=== PATIENT | male | born 1950 | race Caucasian/White ===

== ENCOUNTER 2017-06-19 09:51 | Observation (INO) | payer OTHER, MEDICARE ==
[2017-06-19] MEDS ORDERED: Aspirin 81 MG Tab.Chew PO ONE (09:59)
[2017-06-19] MEDS ORDERED: Nitroglycerin 0.4 MG Tab.SL SL ONE ×2 (10:14→10:30)
--- NOTE | 2017-06-19 12:43 | EDM.PDOC ---
[id number] 4d CHEST PAIN Time Seen by Provider: 06/19/17 10:15 Source of Information: Reports: Patient, Family History Limitations: Reports: No Limitations - History of Present Illness INITIAL COMMENTS - FREE TEXT/NARRATIVE: pt developed left sided chest pain and pain in the left shoulder this and during the art handler hours. He has taken tums all nite and did not get relief. On Sunday he did overeat and he thought his gallbadder was the problem/ . Onset: Today Duration: Hour(s): Location: Reports: Chest Quality: Reports: Pressure, Other ( pain at the level of a 5. ) Improves with: Reports: Cold Therapy Associated Symptoms: Reports: Chest Pain, Other (pt was nauseated. ) CHEST Pain Score (Numeric/FACES): 0 - Related Data Allergies Allergy/AdvReac Type Severity Reaction Status Date / Time No Known Allergies Allergy Verified 06/19/17 09:59 Home Meds: Home Meds Aspirin [Ecotrin] 325 mg PO DAILY 06/19/17 [History] HCTZ/Triamterene [Dyazide 25-37.5 MG] 25 - 37.5 mg PO DAILY 06/19/17 [History] Levothyroxine 175 mcg PO DAILY 06/19/17 [History] Metoprolol Succinate 25 mg PO BEDTIME 06/19/17 [History] atorvaSTATin [Lipitor] 10 mg PO BEDTIME 06/19/17 [History] Pantoprazole [ProTONIX] 40 mg PO ACBREAKFAST #30 tab.cr 06/20/17 [Rx] Past Medical History HEENT History: Reports: Impaired Vision Cardiovascular History: Reports: Bypass, High Cholesterol, Hypertension, [place], Stents Endocrine/Metabolic History: Reports: Hypothyroidism - Infectious Disease History Infectious Disease History: Reports: Chicken Pox, Measles - Past Surgical History GI Surgical History: Reports: Colonoscopy Social & Family History - Tobacco Use Smoking Status *Q: Never Smoker - Caffeine Use Caffeine Use: Reports: Coffee - Recreational Drug Use Recreational Drug Use: No ED ROS GENERAL - Review of Systems Review Of Systems: See Below Constitutional: Reports: No Symptoms HEENT: Reports: No Symptoms Respiratory: Reports: No Symptoms Cardiovascular: Reports: Chest Pain, Other (pt had a 4 vessel bypass in 2009. He has not been having chest pain with activity. ) GI/Abdominal: Reports: Nausea : Reports: No Symptoms Musculoskeletal: Reports: No Symptoms Skin: Reports: No Symptoms Neurological: Reports: No Symptoms ED EXAM, GENERAL - Physical Exam Exam: See Below Free Text/Narrative:: pt devoped acute chest pain during the nite. He felt nauseated. He took alot of tums with no results. He continued to have the left sided chest pain. i Exam Limited By: No Limitations General Appearance: Alert, Moderate Distress Ears: Normal TMs Nose: Normal Inspection Throat/Mouth: Normal Inspection Head: Atraumatic Neck: Normal Inspection Respiratory/Chest: No Respiratory Distress Cardiovascular: Regular Rate, Rhythm GI/Abdominal: Soft, Tender, Other ( very mild tenderness without guarding in the epigastric area. ) (Male) Exam: Normal Inspection Rectal (Males) Exam: Deferred Back Exam: Normal Inspection Extremities: Normal Inspection Neurological: Alert, Oriented, Normal Cognition Psychiatric: Normal Affect Course - Vital Signs Last Recorded V/S: Last Vital Signs Temp 36.9 C 06/20/17 08:50 Pulse 56 L 06/20/17 10:45 Resp 16 06/20/17 10:45 BP 130/79 06/20/17 10:45 Pulse Ox 96 06/20/17 10:45 - Orders/Labs/Meds Labs: Laboratory Tests 06/19/17 06/19/17 06/19/17 Range/Units 10:06 10:06 10:06 WBC 13.6 H (4.5-11.0) K/uL RBC 5.46 (4.30-5.90) M/uL Hgb 16.5 H (12.0-15.0) g/dL Hct 45.7 (40.0-54.0) % MCV 84 (80-98) fL MCH 30 (27-31) pg MCHC 36 (32-36) % Plt Count 229 (150-400) K/uL Neut % (Auto) 83 H (36-66) % Lymph % (Auto) 8 L (24-44) % Dolores % (Auto) 9 H (2-6) % Eos % (Auto) 0 L (2-4) % Baso % (Auto) 0 (0-1) % Sodium 138 L (140-148) mmol/L Potassium 3.7 (3.6-5.2) mmol/L Chloride 104 (100-108) mmol/L Carbon Dioxide 25 (21-32) mmol/L Anion Gap 12.7 (5.0-14.0) mmol/L BUN 13 (7-18) mg/dL Creatinine 0.9 (0.8-1.3) mg/dL Est Cr Clr Drug Dosing 83.67 mL/min Estimated GFR (MDRD) > 60 (>60) Glucose 103 (74-106) mg/dL Calcium 9.6 (8.5-10.1) mg/dL Total Bilirubin 1.2 H (0.2-1.0) mg/dL AST 13 L (15-37) U/L ALT 20 (12-78) U/L Alkaline Phosphatase 79 (46-116) U/L Creatine Kinase 40 (39-308) U/L Troponin I < 0.017 (0.000-0.056) ng/mL Total Protein 7.5 (6.4-8.2) g/dL Albumin 3.6 (3.4-5.0) g/dL Globulin 3.9 H (2.3-3.5) g/dL Albumin/Globulin Ratio 0.9 L (1.2-2.2) Lipase (73-393) U/L Urine Color Urine Appearance Urine pH (4.5-8.0) Ur Specific [place] (1.008-1.030) Urine Protein (NEGATIVE) mg/dL Urine Glucose (UA) (NEGATIVE) mg/dL Urine Ketones (NEGATIVE) mg/dL Urine Occult Blood (NEGATIVE) Urine Nitrite (NEGAITVE) Urine Bilirubin (NEGATIVE) Urine Urobilinogen (NORMAL) mg/dL Ur Leukocyte Esterase (NEGATIVE) Urine RBC (0-5) Urine WBC (0-5) Ur Epithelial Cells Amorphous Sediment Urine Bacteria Urine Mucus 06/19/17 06/19/17 Range/Units 10:09 12:08 WBC (4.5-11.0) K/uL RBC (4.30-5.90) M/uL Hgb (12.0-15.0) g/dL Hct (40.0-54.0) % MCV (80-98) fL MCH (27-31) pg MCHC (32-36) % Plt Count (150-400) K/uL Neut % (Auto) (36-66) % Lymph % (Auto) (24-44) % [place] % (Auto) (2-6) % Eos % (Auto) (2-4) % Baso % (Auto) (0-1) % Sodium (140-148) mmol/L Potassium (3.6-5.2) mmol/L Chloride (100-108) mmol/L Carbon Dioxide (21-32) mmol/L Anion Gap (5.0-14.0) mmol/L BUN (7-18) mg/dL Creatinine (0.8-1.3) mg/dL Est Cr Clr Drug Dosing mL/min Estimated GFR (MDRD) (>60) Glucose (74-106) mg/dL Calcium (8.5-10.1) mg/dL Total Bilirubin (0.2-1.0) mg/dL AST (15-37) U/L ALT (12-78) U/L Alkaline Phosphatase (46-116) U/L Creatine Kinase (39-308) U/L Troponin I (0.000-0.056) ng/mL Total Protein (6.4-8.2) g/dL Albumin (3.4-5.0) g/dL Globulin (2.3-3.5) g/dL Albumin/Globulin Ratio (1.2-2.2) Lipase 216 (73-393) U/L Urine Color Yellow Urine Appearance Clear Urine pH 8.0 (4.5-8.0) Ur Specific [place] 1.015 (1.008-1.030) Urine Protein Negative (NEGATIVE) mg/dL Urine Glucose (UA) Normal (NEGATIVE) mg/dL Urine Ketones Negative (NEGATIVE) mg/dL Urine Occult Blood Negative (NEGATIVE) Urine Nitrite Negative (NEGAITVE) Urine Bilirubin Negative (NEGATIVE) Urine Urobilinogen Normal (NORMAL) mg/dL Ur Leukocyte Esterase Negative (NEGATIVE) Urine RBC Not seen (0-5) Urine WBC 0-5 (0-5) Ur Epithelial Cells Few Amorphous Sediment Not seen Urine Bacteria Not seen Urine Mucus Few Meds: Medications Discontinued Medications Generic Name Dose Route Start Last Admin Trade Name Freq PRN Reason Stop Dose Admin Acetaminophen 650 mg 06/19/17 15:38 06/19/17 21:24 Tylenol PO 650 mg Q4H PRN Administration Pain (Mild 1-3)/fever Al Hydroxide/Mg Hydroxide 30 ml 06/19/17 15:38 Mag-Al Plus PO Q4H PRN Indigestion Aspirin 324 mg 06/19/17 09:59 06/19/17 10:20 Aspirin PO 06/19/17 10:00 Not Given ONETIME ONE Aspirin 325 mg 06/20/17 09:00 06/20/17 10:49 Ecotrin PO 325 mg DAILY CHARLETTE Administration Atorvastatin Calcium 10 mg 06/19/17 21:00 06/19/17 21:24 Lipitor PO 10 mg BEDTIME CHARLETTE Administration Al Hydroxide/Mg Hydroxide 15 0 ml 06/19/17 13:40 06/19/17 13:43 ml/ Lidocaine HCl 15 ml PO 06/19/17 13:41 15 ml ONETIME ONE Administration Fentanyl Confirm 06/20/17 07:43 Sublimaze Administered 06/20/17 07:44 Dose 100 mcg .ROUTE .STK-MED ONE Sodium Chloride 85 mls @ 3.5 mls/sec 06/19/17 14:00 06/19/17 13:57 Normal Saline IV 06/19/17 14:30 3.5 mls/sec ASDIRECTED CHARLETTE Administration Sodium Chloride 1,000 mls @ 125 mls/hr 06/19/17 15:38 06/20/17 07:49 Normal Saline IV 125 mls/hr ASDIRECTED CHARLETTE Administration Iopamidol 150 ml 06/19/17 13:48 06/19/17 13:57 Isovue-300 (61%) IV 06/19/17 14:30 150 ml . DIRECTED PRN Administration RADIOLOGY EXAM Metoprolol Succinate 25 mg 06/19/17 21:00 06/19/17 21:24 Toprol Xl PO 25 mg BEDTIME CHARLETTE Administration Midazolam HCl Confirm 06/20/17 07:43 Versed 1 Mg/Ml Administered 06/20/17 07:44 Dose 2 mg .ROUTE .STK-MED ONE Morphine Sulfate 2 mg 06/19/17 15:38 06/20/17 00:04 Morphine IVPUSH 2 mg Q2H PRN Administration Pain (severe 7-10) Nitroglycerin 0.4 mg 06/19/17 10:14 06/19/17 10:19 Nitrostat SL 06/19/17 10:15 0.4 mg ONETIME ONE Administration Nitroglycerin 0.4 mg 06/19/17 10:30 06/19/17 10:32 Nitrostat SL 06/19/17 10:31 0.4 mg ONETIME ONE Administration Levothyroxine 175 0 mcg 06/20/17 07:30 06/20/17 10:48 Mcg (Ptom) PO 175 mcg DAILY@0730 CHARLETTE Administration Ondansetron HCl 4 mg 06/19/17 15:38 Zofran Odt PO Q6H PRN Nausea able to take PO Ondansetron HCl 4 mg 06/19/17 15:38 Zofran IV Q6H PRN Nausea/Vomiting Oxycodone HCl 5 mg 06/19/17 15:38 06/19/17 21:24 Oxycodone PO 5 mg Q4H PRN Administration Pain (moderate 4-6) Pantoprazole Sodium 40 mg 06/20/17 07:30 06/20/17 10:51 Protonix PO 40 mg ACBREAKFAST CHARLETTE Administration Pantoprazole Sodium 40 mg 06/19/17 16:30 06/19/17 16:29 Protonix Iv IVPUSH 06/19/17 16:31 40 mg ONETIME ONE Administration Hctz/Triamterene 25/ 1 each 06/20/17 09:00 06/20/17 10:47 37.5mg (Ptom) PO 1 each DAILY CHARLETTE Administration Propofol Confirm 06/20/17 07:43 Diprivan 20 Ml Administered 06/20/17 07:44 Dose 200 mg .ROUTE .STK-MED ONE Sodium Chloride 10 ml 06/19/17 13:48 06/19/17 13:56 Saline Flush FLUSH 06/19/17 14:30 10 ml ONETIME PRN Administration per radiology protocol - Re-Assessments/Exams Free Text/Narrative Re-Assessment/Exam: 06/19/17 12:52 cardiac enzymes were normal. He had relief with 2 nitros. He had taken asa at home. His ekg did not show acute findings. His GB US was neg. Departure - Departure Time of Disposition: 12:53 Disposition: Admitted As Inpatient 65 Reason for Transfer *Q: Primary PCI Indicated Condition: Fair Clinical Impression: Angina at rest CAD (coronary artery disease) Qualifiers: Coronary Disease-Associated Artery/Lesion type: [place] artery [place] vs. transplanted heart: [place] heart Associated angina: without angina Qualified Code(s): I25.10 - Atherosclerotic heart disease of [place] coronary artery without angina pectoris
--- NOTE | 2017-06-19 13:12 | CR ---
Sternotomy. No focal consolidation. Tortuous aorta. Pulmonary vasculature within normal limits.
--- NOTE | 2017-06-19 13:22 | US ---
Ultrasound abdomen. Findings: Liver is limited. There may be some fatty infiltration. Gallbladder unremarkable. No wall thickening. Negative sonographic Dolan sign. Common bile duct 4 mm. Pancreas not well-visualized. 6 mm nonobstructing stone right kidney. IVC is patent. No ascites fluid. Impression: 1. Gallbladder unremarkable. 2. Nonobstructing stone right kidney.
[2017-06-19] MEDS ORDERED: Alum Hydrox/Mag Hydrox/Simeth 15 ML, Lidocaine 2% 15 ML PO ONE ×2 (13:40)
[2017-06-19] MEDS ORDERED: Sodium Chloride 0.9% 10 ML Syringe FLUSH PRN (13:48)
[2017-06-19] MEDS ORDERED: Iopamidol 612 MG/ML 150 ML Bottle IV PRN (13:48)
--- NOTE | 2017-06-19 14:23 | CT ---
CT abdomen and pelvis Indication: Epigastric pain. Total DLP 873. Findings: Atelectasis in the lung bases. Fatty infiltration of the liver. Gallbladder within normal limits. Adrenal glands are within normal limits. There is hyperemia within the second portion of the duodenum mild amount of fat stranding about the second duodenum portion the duodenum. Slight hazine ss about the uncinate process and pancreatic head. 5 mm vague hypoattenuation within the pancreatic head may relate to volume averaging only. Pancreas within normal limits. No hydronephrosis. A few ti ny hypodensities within the kidneys are too small to characterize. Probable right renal cyst near 1 cm axial image #58 with the mid pole should be confirmed with ultrasound. No dilated loops of small bowel. Sigmoid diverticuli. No evidence for acute diverticulitis. Appendix within normal limits. Ter rolf ileum within normal limits. A few small lymph nodes minimal haziness within the mesentery. Ath erosclerotic nonaneurysmal aorta. Degenerative changes of both hips. Impression: 1. Haziness of both the duodenum may indicate acute duodenitis or may be reactive due to acute pancr eatitis. Correlate with enzymes and consider endoscopy follow-up. 2. Vague hypoattenuation within the pancreatic head may be due to volume averaging only and may also be due to inflammation, acute pancreatitis but would recommend CT follow-up of the abdomen and pelv is in pancreatic protocol in 6 months. 3. There are few minimal lymph nodes in the mesentery with minimal haziness. This is nonspecific and could be inflammatory in nature. This could be evaluated again in [address] 4. Would confirm a right renal cyst with ultrasound. Nonemergent.
--- NOTE | 2017-06-19 14:52 | PCM.HP ---
H&P History of Present Illness - General Date of Service: 06/19/17 Admit Problem/Dx: Admission Diagnosis/Problem Admission Diagnosis/Problem Epigastric pain Source of Information: Patient, Family, Provider History Limitations: Reports: No Limitations - History of Present Illness Initial Comments - Free Text/Narative: Kuldip presents to the emergency room today with epigastric abdominal pain. He reports onset of pain yesterday about 4 PM and the pain has been essentially constant since that time. He describes this as a dull achy pain that radiates up into the lower part of his chest slightly. The pain does not get worse with exertion. No obvious positional component. He has been taking Tums at home but this has not helped his pain at all. He's had some nausea but has not had any vomiting. He is not aware of any fevers. His appetite has been decreased from baseline over the past 24. No change in his bowel or bladder habits from baseline. He is not taking any new medications. No recent travel or sick contacts. He is now pain-free after he received 2 nitroglycerin in the emergency room. Workup in the emergency room was remarkable for mild leukocytosis but otherwise reassuring initially. A CT scan of his abdomen and pelvis revealed probable inflammation of the duodenum and possibly some mild pancreatitis. He will be admitted for further workup and management. CHEST Pain Score (Numeric/FACES): 0 - Related Data Allergies/Adverse Reactions: Allergies Allergy/AdvReac Type Severity Reaction Status Date / Time No Known Allergies Allergy Verified 06/19/17 09:59 Home Medications: Home Meds Aspirin [Ecotrin] 325 mg PO DAILY 06/19/17 [History] HCTZ/Triamterene [Dyazide 25-37.5 MG] 25 - 37.5 mg PO DAILY 06/19/17 [History] Levothyroxine 175 mcg PO DAILY 06/19/17 [History] Metoprolol Succinate 25 mg PO BEDTIME 06/19/17 [History] atorvaSTATin [Lipitor] 10 mg PO BEDTIME 06/19/17 [History] Past Medical History HEENT History: Reports: Impaired Vision Cardiovascular History: Reports: Bypass, High Cholesterol, Hypertension, [place], Stents Endocrine/Metabolic History: Reports: Hypothyroidism - Infectious Disease History Infectious Disease History: Reports: Chicken Pox, Measles - Past Surgical History GI Surgical History: Reports: Colonoscopy Social & Family History - Family History Cardiac: Denies: CAD - Tobacco Use Smoking Status *Q: Never Smoker - Caffeine Use Caffeine Use: Reports: Coffee - Alcohol Use Alcohol Use History: Yes Days Per Week of Alcohol Use: 1 Days Per Week of Alcohol Use Comment: occasional beer or two Alcohol Use in Last Twelve Months: Yes Alcohol Use Frequency: Monthly - Recreational Drug Use Recreational Drug Use: No H&P Review of Systems - Review of Systems: Review Of Systems: See Below Free Text/Narrative: A complete 12 point review of systems was obtained. Pertinent positives and negatives are noted in the history of present illness. All other systems were reviewed and were negative except as noted. Exam - Exam Exam: See Below - Vital Signs Vital Signs: Last Vital Signs Temp 37.2 C 06/19/17 10:11 Pulse 60 06/19/17 10:25 Resp 16 06/19/17 10:33 BP 148/94 H 06/19/17 10:33 Pulse Ox 98 06/19/17 10:33 Weight: 99.79 kg - Exam Quality Assessment: No: Supplemental Oxygen General: Alert, Oriented, Cooperative. No: Mild Distress HEENT: Conjunctiva Clear, Mucosa Moist & [place]. No: Scleral Icterus Neck: Supple, Trachea Midline. No: Lymphadenopathy Lungs: Clear to Auscultation, Normal Respiratory Effort Cardiovascular: Regular Rate, Regular Rhythm. No: Systolic Murmur GI/Abdominal Exam: Normal Bowel Sounds, Soft, No Distention, Tender (mild to moderate epigastric tenderness). No: Guarding, Rebound Back Exam: Normal Inspection, Full Range of Motion Extremities: Normal Inspection, Normal Range of Motion Peripheral Pulses: 2+: Dorsalis Pedis (L), Dorsalis Pedis (R) Skin: Warm, Dry Neuro Extensive - Mental Status: Alert, Oriented x3, Nl Response to Commands Neuro Extensive - Motor, Sensory, Reflexes: CN II-XII Intact. No: Dysarthria, Abnormal Motor, Tremor Psychiatric: Alert, Normal Affect - Patient Data Lab Results Last 24 hrs: Laboratory Results - last 24 hr 06/19/17 06/19/17 06/19/17 Range/Units 10:06 10:06 10:06 WBC 13.6 H (4.5-11.0) K/uL RBC 5.46 (4.30-5.90) M/uL Hgb 16.5 H (12.0-15.0) g/dL Hct 45.7 (40.0-54.0) % MCV 84 (80-98) fL MCH 30 (27-31) pg MCHC 36 (32-36) % Plt Count 229 (150-400) K/uL Neut % (Auto) 83 H (36-66) % Lymph % (Auto) 8 L (24-44) % [place] % (Auto) 9 H (2-6) % Eos % (Auto) 0 L (2-4) % Baso % (Auto) 0 (0-1) % Sodium 138 L (140-148) mmol/L Potassium 3.7 (3.6-5.2) mmol/L Chloride 104 (100-108) mmol/L Carbon Dioxide 25 (21-32) mmol/L Anion Gap 12.7 (5.0-14.0) mmol/L BUN 13 (7-18) mg/dL Creatinine 0.9 (0.8-1.3) mg/dL Est Cr Clr Drug Dosing 83.67 mL/min Estimated GFR (MDRD) > 60 (>60) Glucose 103 (74-106) mg/dL Calcium 9.6 (8.5-10.1) mg/dL Total Bilirubin 1.2 H (0.2-1.0) mg/dL AST 13 L (15-37) U/L ALT 20 (12-78) U/L Alkaline Phosphatase 79 (46-116) U/L Creatine Kinase 40 (39-308) U/L Troponin I < 0.017 (0.000-0.056) ng/mL Total Protein 7.5 (6.4-8.2) g/dL Albumin 3.6 (3.4-5.0) g/dL Globulin 3.9 H (2.3-3.5) g/dL Albumin/Globulin Ratio 0.9 L (1.2-2.2) Lipase (73-393) U/L Urine Color Urine Appearance Urine pH (4.5-8.0) Ur Specific [place] (1.008-1.030) Urine Protein (NEGATIVE) mg/dL Urine Glucose (UA) (NEGATIVE) mg/dL Urine Ketones (NEGATIVE) mg/dL Urine Occult Blood (NEGATIVE) Urine Nitrite (NEGAITVE) Urine Bilirubin (NEGATIVE) Urine Urobilinogen (NORMAL) mg/dL Ur Leukocyte Esterase (NEGATIVE) Urine RBC (0-5) Urine WBC (0-5) Ur Epithelial Cells Amorphous Sediment Urine Bacteria Urine Mucus 06/19/17 06/19/17 Range/Units 10:09 12:08 WBC (4.5-11.0) K/uL RBC (4.30-5.90) M/uL Hgb (12.0-15.0) g/dL Hct (40.0-54.0) % MCV (80-98) fL MCH (27-31) pg MCHC (32-36) % Plt Count (150-400) K/uL Neut % (Auto) (36-66) % Lymph % (Auto) (24-44) % [place] % (Auto) (2-6) % Eos % (Auto) (2-4) % Baso % (Auto) (0-1) % Sodium (140-148) mmol/L Potassium (3.6-5.2) mmol/L Chloride (100-108) mmol/L Carbon Dioxide (21-32) mmol/L Anion Gap (5.0-14.0) mmol/L BUN (7-18) mg/dL Creatinine (0.8-1.3) mg/dL Est Cr Clr Drug Dosing mL/min Estimated GFR (MDRD) (>60) Glucose (74-106) mg/dL Calcium (8.5-10.1) mg/dL Total Bilirubin (0.2-1.0) mg/dL AST (15-37) U/L ALT (12-78) U/L Alkaline Phosphatase (46-116) U/L Creatine Kinase (39-308) U/L Troponin I (0.000-0.056) ng/mL Total Protein (6.4-8.2) g/dL Albumin (3.4-5.0) g/dL Globulin (2.3-3.5) g/dL Albumin/Globulin Ratio (1.2-2.2) Lipase 216 (73-393) U/L Urine Color Yellow Urine Appearance Clear Urine pH 8.0 (4.5-8.0) Ur Specific [place] 1.015 (1.008-1.030) Urine Protein Negative (NEGATIVE) mg/dL Urine Glucose (UA) Normal (NEGATIVE) mg/dL Urine Ketones Negative (NEGATIVE) mg/dL Urine Occult Blood Negative (NEGATIVE) Urine Nitrite Negative (NEGAITVE) Urine Bilirubin Negative (NEGATIVE) Urine Urobilinogen Normal (NORMAL) mg/dL Ur Leukocyte Esterase Negative (NEGATIVE) Urine RBC Not seen (0-5) Urine WBC 0-5 (0-5) Ur Epithelial Cells Few Amorphous Sediment Not seen Urine Bacteria Not seen Urine Mucus Few Result Diagrams: 06/19/17 10:06 06/19/17 10:06 Imaging Impressions Last 24 hrs: chest x-ray - images personally reviewed - clear with no mass, infiltrate, CHF or effusion Gallbladder ultrasound - no evidence for distention, wall thickening or pericholecystic fluid CT scan of the abdomen and pelvis with IV contrast - images personally reviewed and radiologist interpretation noted - there appears to be thickening of the duodenum as well as possible haziness around the head of the pancreas. No obvious masses noted. No free air. The radiologist noted some mesenteric lymph node enlargement in the area of the inflammation and this may be reactive but he did recommend follow-up CT in 6 months. 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 *Q Meaningful Use (ADM) - VTE *Q VTE Criteria *Q: - VTE Risk Assess *Q Each Risk Factor Represents 1 Point: Obesity (BMI greater than 30) Total Score 1 Point Risk Factors: 1 Each Risk Factor Represents 2 Points: Age 60 - 74 Years Total Score 2 Point Risk Factors: 2 Each Risk Factor Represents 3 Points: None Total Score 3 Point Risk Factors: 0 Each Risk Factor Represents 5 Points: None Total Score 5 Point Risk Factors: 0 Venous Thromboembolism Risk Factor Score *Q: 3 - Stroke *Q Stroke Criteria *Q: - AMI *Q AMI Criteria *Q: - Problem List (1) Epigastric abdominal pain SNOMED Code(s): 27623948 ICD Code: R10.13 - EPIGASTRIC PAIN Status: Acute Current Visit: Yes (2) CAD (coronary artery disease) SNOMED Code(s): 72441318 ICD Code: I25.10 - ATHSCL HEART DISEASE OF [place] CORONARY ARTERY W/O ANG PCTRS Status: Chronic Current Visit: Yes Qualifiers: Coronary Disease-Associated Artery/Lesion type: [place] artery [place] vs. transplanted heart: [place] heart Associated angina: without angina Qualified Code(s): I25.10 - Atherosclerotic heart disease of [place] coronary artery without angina pectoris Problem List Initiated/Reviewed/Updated: Yes Orders Last 24hrs: Active Orders 24 hr Category Date Time Status Patient Status Manage Transfer [TRANSFER] Routine ADT 06/19/17 14:39 Ordered EKG Documentation Completion [RC] ASDIRECTED Care 06/19/17 09:58 Active Resuscitation Status Routine Resus Stat 06/19/17 14:41 Ordered EKG 12 Lead [EK] Routine Ther 06/19/17 09:58 Ordered Assessment/Plan Comment:: Assessment and plan - epigastric abdominal pain - very atypical for cardiac pain and cardiac workup normal. CT scan suggested inflammation of the duodenum with ulcer disease high on the list for possibilities. No symptoms of infection at this time. Pain is tolerable at this time and he does have some associated nausea. -Pain and nausea control overnight -IV fluids -PPI -EGD with Dr. Lauren in the morning coronary artery disease - history of with previous bypass surgery. No symptoms with activity and no evidence for acute coronary syndrome. I suspect his coronary artery disease is stable and not playing a role in this admission. -Continue medical management Mesenteric lymphadenopathy - mild and likely reactive but radiology did recommend 6 month follow-up. Maintenance issues - - DVT prophylaxis - mechanical - GI prophylaxis - PPI - Nutrition - clear liquids today, nothing by mouth after midnight - Joyce catheter - not indicated CODE STATUS - full code Admission justification - patient will be referred observation status for symptom management and additional workup Disposition - anticipate discharge to home tomorrow if stable overnight Primary care physician - Husam Harrell M.D.
[2017-06-19] MEDS ORDERED: oxyCODONE 5 MG Tab PO PRN (15:38)
[2017-06-19] MEDS ORDERED: Aluminum Hydroxide/Magnesium Hydroxide/Simethicone Susp 30 ML Cup PO PRN (15:38)
[2017-06-19] MEDS ORDERED: Ondansetron 4 MG Tab.DIS PO PRN (15:38)
[2017-06-19] MEDS ORDERED: Ondansetron 4 MG/2 ML SDV IV PRN (15:38)
[2017-06-19] MEDS ORDERED: Acetaminophen 325 MG Tab PO PRN (15:38)
[2017-06-19] MEDS: Sodium Chloride 0.9% 1,000 ML IV SCH ×2 (16:00→23:48)
[2017-06-19] MEDS ORDERED: Pantoprazole 40 MG Vial IVPUSH ONE (16:30)
[2017-06-19] MEDS: Morphine 2 MG/ML Syringe IVPUSH PRN (16:34)
[2017-06-19] MEDS ORDERED: ATORVASTATIN 20 MG PO SCH (21:00)
[2017-06-19] MEDS ORDERED: Metoprolol Succinate 50 MG Tab.ER (PTOM) PO SCH (21:00)
[2017-06-20] MEDS: Morphine 2 MG/ML Syringe IVPUSH PRN (00:04)
[2017-06-20] MEDS ORDERED: LEVOTHYROXINE 175 MCG PO SCH (07:30)
[2017-06-20] MEDS ORDERED: Pantoprazole 40 MG Tab.CR PO SCH (07:30)
[2017-06-20] MEDS ORDERED: Midazolam 1 MG/ML 2 ML SDV ONE (07:43)
[2017-06-20] MEDS ORDERED: fentaNYL 100 MCG/2 ML SDV ONE (07:43)
[2017-06-20] MEDS ORDERED: Propofol 200 MG/20 ML SDV ONE (07:43)
[2017-06-20] MEDS: Sodium Chloride 0.9% 1,000 ML IV SCH (07:49)
[2017-06-20] MEDS ORDERED: Non-Formulary Medication 1 Each (Levothyroxine [Levothyroxine] 175 MCG) PO SCH (09:00)
[2017-06-20] MEDS ORDERED: ASPIRIN 325 MG PO SCH (09:00)
[2017-06-20] MEDS ORDERED: HCTZ PO SCH (09:00)
[2017-06-20] MEDS ORDERED: TRIAMTERENE PO SCH (09:00)
[2017-06-20] MEDS ORDERED: Hydrochlorothiazide/Triamterene 25-37.5 MG Cap PO SCH (09:00)
[2017-06-20 12:31] VITALS: BP 130/79
--- NOTE | 2017-06-20 12:35 | PCM.DCSUM1 ---
Discharge Summary - Hospital Course Brief History: 67-year-old male with history of coronary artery disease who presented with epigastric pain. He was admitted for further workup and management of possible duodenitis. - Discharge Data Discharge Date: 06/20/17 Discharge Disposition: Home, Self-Care 01 Condition: Good - Discharge Diagnosis/Problem(s) (1) Epigastric abdominal pain SNOMED Code(s): 81560317 ICD Code: R10.13 - EPIGASTRIC PAIN Status: Acute (2) CAD (coronary artery disease) SNOMED Code(s): 64289780 ICD Code: I25.10 - ATHSCL HEART DISEASE OF [place] CORONARY ARTERY W/O ANG PCTRS Status: Chronic Qualifiers: Coronary Disease-Associated Artery/Lesion type: [place] artery [place] vs. transplanted heart: [place] heart Associated angina: without angina Qualified Code(s): I25.10 - Atherosclerotic heart disease of [place] coronary artery without angina pectoris - Patient Summary/Data Operative Procedure(s) Performed: EGD with Dr. Lauren showing mild reflux disease Consults: Consultations 06/19/17 15:38 Consult to Physician [CONS] Routine Consulting Provider: Jaya Lauren Call Completed to Consulting Physician: Yes Reason for Consult: epigastric pain, consider EGD Person Notified: RW Date Notified: 06/19/17 Special Instructions: EGD in am Hospital Course: Kuldip presented to the emergency room with more than 12 hours of epigastric abdominal pain. Workup in the emergency room revealed a mildly elevated white blood cell count but was otherwise reassuring initially. There is no evidence for acute coronary syndrome. A CT scan of the abdomen and pelvis revealed a probable inflammation of the duodenum. He was admitted to the hospital for IV fluids, pain control at additional workup. There were no acute events overnight following admission and his pain had been improving. An EGD performed the morning after admission revealed only some mild esophageal reflux but no evidence for duodenitis or duodenal ulcers. Duodenum appeared entirely normal under endoscopy evaluation. On the morning after admission he is pain-free. We did feed him lunch which he tolerated well with no pain or nausea. The exact cause for his pain is not entirely clear. Other than the mild inflammation of the duodenum seen on the CT scan we did not find an obvious cause. His lipase level was normal and his endoscopy was normal. Bladder and liver appeared to be normal in the hepatic enzymes were normal other than a very mildly elevated total bilirubin. Clinically is doing much better and safe for discharge to home. I don't believe he needs specific follow-up unless his symptoms return or do not continue to get better. Of note he did have some mild lymphadenopathy noted in the upper abdomen on his CT scan. The radiologist recommended a six-month follow-up scan to ensure that this was reactive and resolved at that time. - Patient Instructions Diet: Regular Diet as Tolerated Diet, Other: Soft and bland foods for the next 1-2 weeks Activity: As Tolerated Driving: Do Not Drive (No driving today because you had anesthesia this morning) Showering/Bathing: May Shower Notify Provider of: Fever, Increased Pain, Nausea and/or Vomiting Other/Special Instructions: 1. You were in the hospital for management of epigastric pain that is thought secondary to mild gastritis and possibly a viral gastrointestinal infection. We did not find any evidence for gastric or duodenal ulcers. Your symptoms have improved with conservative management. I do recommend that you take a proton pump inhibitor called pantoprazole daily for the next one month to help heal up the mild gastritis. 2. The CT scan of your abdomen revealed mildly enlarged lymph nodes which are probably reactive to the inflammation/possible infection in the duodenum but the radiologist did recommend a follow-up CT scan in 6 months to ensure that these have shrunk in size or gone away completely. Please talked your regular doctor about setting up this CT scan. 3. Continue your home medications as previously prescribed. 4. Please seek medical attention if you develop fever greater than 101, have persistent nausea or vomiting or if you develop severe pain in your abdomen. - Discharge Plan Prescriptions/Med Rec: Pantoprazole [ProTONIX] 40 mg PO ACBREAKFAST #30 tab.cr Home Medications: Home Meds Aspirin [Ecotrin] 325 mg PO DAILY 06/19/17 [History] HCTZ/Triamterene [Dyazide 25-37.5 MG] 25 - 37.5 mg PO DAILY 06/19/17 [History] Levothyroxine 175 mcg PO DAILY 06/19/17 [History] Metoprolol Succinate 25 mg PO BEDTIME 06/19/17 [History] atorvaSTATin [Lipitor] 10 mg PO BEDTIME 06/19/17 [History] Pantoprazole [ProTONIX] 40 mg PO ACBREAKFAST #30 tab.cr 06/20/17 [Rx] Patient Handouts: Gastritis, Adult, Pantoprazole tablets Referrals: Grecia Washington MD [Primary Care Provider] - (Follow-up if your symptoms do not continue to get better or they get worse) - Discharge Summary/Plan Comment DC Time >30 min.: No (25) - Patient Data Vitals - Most Recent: Last Vital Signs Temp 36.9 C 06/20/17 08:50 Pulse 56 L 06/20/17 10:45 Resp 16 06/20/17 10:45 BP 130/79 06/20/17 10:45 Pulse Ox 96 06/20/17 10:45 Weight - Most Recent: 99.79 kg I&O - Last 24 hours: Intake & Output 06/19/17 06/20/17 06/20/17 22:59 06:59 14:59 Intake Total 940 1526 50 Output Total 400 800 Balance 540 726 50 Lab Results - Last 24 hrs: Laboratory Results - last 24 hr 06/20/17 06/20/17 Range/Units 06:00 06:20 WBC 11.3 H (4.5-11.0) K/uL RBC 5.03 (4.30-5.90) M/uL Hgb 14.9 (12.0-15.0) g/dL Hct 42.7 (40.0-54.0) % MCV 85 (80-98) fL MCH 30 (27-31) pg MCHC 35 (32-36) % Plt Count 190 (150-400) K/uL Sodium 140 (140-148) mmol/L Potassium 3.5 L (3.6-5.2) mmol/L Chloride 105 (100-108) mmol/L Carbon Dioxide 25 (21-32) mmol/L Anion Gap 13.5 (5.0-14.0) mmol/L BUN 9 (7-18) mg/dL Creatinine 0.8 (0.8-1.3) mg/dL Est Cr Clr Drug Dosing 94.13 mL/min Estimated GFR (MDRD) > 60 (>60) Glucose 101 (74-106) mg/dL Calcium 8.6 (8.5-10.1) mg/dL Total Bilirubin 1.4 H (0.2-1.0) mg/dL AST 10 L (15-37) U/L ALT 15 (12-78) U/L Alkaline Phosphatase 66 (46-116) U/L Total Protein 6.6 (6.4-8.2) g/dL Albumin 2.9 L (3.4-5.0) g/dL Globulin 3.7 H (2.3-3.5) g/dL Albumin/Globulin Ratio 0.8 L (1.2-2.2) Med Orders - Current: Current Medications Acetaminophen (Tylenol) 650 mg PO Q4H PRN PRN Reason: Pain (Mild 1-3)/fever Last Admin: 06/19/17 21:24 Dose: 650 mg Al Hydroxide/Mg Hydroxide (Mag-Al Plus) 30 ml PO Q4H PRN PRN Reason: Indigestion Aspirin (Ecotrin) 325 mg PO DAILY [facility] Last Admin: 06/20/17 10:49 Dose: 325 mg Atorvastatin Calcium (Lipitor) 10 mg PO BEDTIME [facility] Last Admin: 06/19/17 21:24 Dose: 10 mg Metoprolol Succinate (Toprol Xl) 25 mg PO BEDTIME [facility] Last Admin: 06/19/17 21:24 Dose: 25 mg Morphine Sulfate (Morphine) 2 mg IVPUSH Q2H PRN PRN Reason: Pain (severe 7-10) Last Admin: 06/20/17 00:04 Dose: 2 mg Levothyroxine 175 (Mcg (Ptom)) 0 mcg PO DAILY@0730 [facility] Last Admin: 06/20/17 10:48 Dose: 175 mcg Ondansetron HCl (Zofran Odt) 4 mg PO Q6H PRN PRN Reason: Nausea able to take PO Ondansetron HCl (Zofran) 4 mg IV Q6H PRN PRN Reason: Nausea/Vomiting Oxycodone HCl (Oxycodone) 5 mg PO Q4H PRN PRN Reason: Pain (moderate 4-6) Last Admin: 06/19/17 21:24 Dose: 5 mg Pantoprazole Sodium (Protonix) 40 mg PO ACBREAKFAST [facility] Last Admin: 06/20/17 10:51 Dose: 40 mg Hctz/Triamterene 25/ (37.5mg (Ptom)) 1 each PO DAILY [facility] Last Admin: 06/20/17 10:47 Dose: 1 each Discontinued Medications Aspirin (Aspirin) 324 mg PO ONETIME ONE Stop: 06/19/17 10:00 Last Admin: 06/19/17 10:20 Dose: Not Given Al Hydroxide/Mg Hydroxide 15 (ml/ Lidocaine HCl 15 ml) 0 ml PO ONETIME ONE Stop: 06/19/17 13:41 Last Admin: 06/19/17 13:43 Dose: 15 ml Fentanyl (Sublimaze) Confirm Administered Dose 100 mcg .ROUTE .STK-MED ONE Stop: 06/20/17 07:44 Sodium Chloride (Normal Saline) 85 mls @ 3.5 mls/sec IV ASDIRECTED [facility] Stop: 06/19/17 14:30 Last Admin: 06/19/17 13:57 Dose: 3.5 mls/sec Sodium Chloride (Normal Saline) 1,000 mls @ 125 mls/hr IV ASDIRECTED [facility] Last Admin: 06/20/17 07:49 Dose: 125 mls/hr Iopamidol (Isovue-300 (61%)) 150 ml IV . DIRECTED PRN PRN Reason: RADIOLOGY EXAM Stop: 06/19/17 14:30 Last Admin: 06/19/17 13:57 Dose: 150 ml Midazolam HCl (Versed 1 Mg/Ml) Confirm Administered Dose 2 mg .ROUTE .STK-MED ONE Stop: 06/20/17 07:44 Nitroglycerin (Nitrostat) 0.4 mg SL ONETIME ONE Stop: 06/19/17 10:15 Last Admin: 06/19/17 10:19 Dose: 0.4 mg Nitroglycerin (Nitrostat) 0.4 mg SL ONETIME ONE Stop: 06/19/17 10:31 Last Admin: 06/19/17 10:32 Dose: 0.4 mg Pantoprazole Sodium (Protonix Iv) 40 mg IVPUSH ONETIME ONE Stop: 06/19/17 16:31 Last Admin: 06/19/17 16:29 Dose: 40 mg Propofol (Diprivan 20 Ml) Confirm Administered Dose 200 mg .ROUTE .STK-MED ONE Stop: 06/20/17 07:44 Sodium Chloride (Saline Flush) 10 ml FLUSH ONETIME PRN PRN Reason: per radiology protocol Stop: 06/19/17 14:30 Last Admin: 06/19/17 13:56 Dose: 10 ml *Q Meaningful Use (DIS) - VTE *Q VTE Criteria *Q: - Stroke *Q Stroke Criteria *Q: - AMI *Q AMI Criteria *Q:
--- NOTE | 2017-06-20 14:10 | OR ---
DATE OF PROCEDURE: 06/19/2017 PROCEDURE: Esophagogastroduodenoscopy. FINDINGS: 1. Mild inflammation in the gastric antrum consistent with mild gastritis. 2. Inflammation at GE junction consistent with reflux disease. 3. Both areas biopsied multiple times. COMPLICATIONS: None. DISTRIBUTOR SALES CONSULTANT: None. PREOPERATIVE DIAGNOSIS: Epigastric/abdominal pain. POSTOPERATIVE DIAGNOSIS: Epigastric/abdominal pain. RISKS: Risks, benefits, alternatives, limitations including, but not limited to infection, bleeding, and perforation were explained to the patient and wished to proceed. PROCEDURE IN DETAIL: The patient was placed in left lateral decubitus position. The scope was introduced and advanced into the duodenum. In the duodenum and its respective bulb, there was no evidence of ulceration or duodenitis. In the distal antrum, there was mild inflammation consistent with gastritis. This was biopsied multiple times using cold biopsy forceps to evaluate for H. pylori. On retroflex, it was not hiatal hernia. The remainder of the stomach was normal. At the GE junction, there was inflammation consistent with reflux disease. This was biopsied x6 in all 4 quadrants. No abnormalities noted at esophagus. The patient tolerated the procedure well. Jaya Lauren MD /[id number]
== END 2017-06-20 13:10 | disposition home or self-care (01) ==
LOC: JP.ED 09:51 → JP.ICU 14:39 → UNDOADMOB 14:39
PROVIDERS: ADMIT Internal Medicine; ATTEND Internal Medicine
PROC: 0DB48ZZ Excision of Esophagogastric Junction, Via Natural or Artificial Opening Endoscopic (ICD-10-PCS; principal; 2017-06-19)
DX: R10.13 Epigastric pain (principal); R07.9 Chest pain, unspecified; Z79.82 Long term (current) use of aspirin; E78.00 Pure hypercholesterolemia, unspecified; I10 Essential (primary) hypertension; E03.9 Hypothyroidism, unspecified; Z95.1 Presence of aortocoronary bypass graft; I25.10 Atherosclerotic heart disease of native coronary artery without angina pectoris; I25.2 Old myocardial infarction; K29.70 Gastritis, unspecified, without bleeding
CPT/HCPCS: 36415; 43239; 71010; 74177; 76705; 80053; 81001; 82550; 83690; 84484; 85025; 85027; 93005; 96361; 96374; 96375; 96376; 99285; A9270; C9113; G0378; J2250; J2270; J2704; J3010; J7030; J7040; J7050; 88305; 88342; 93010; 99219; 99234

== ENCOUNTER 2019-12-13 14:52 | Emergency (ER) | payer MEDICARE, OTHER ==
--- NOTE | 2019-12-13 15:57 | EDM.PDOC ---
ED HPI GENERAL MEDICAL PROBLEM - General Chief Complaint: Neurological Problem Stated Complaint: CONFUSED/ HEART ISSUES Time Seen by Provider: 12/13/19 15:40 Source of Information: Reports: Patient, Family, Old Records, RN History Limitations: Reports: No Limitations - History of Present Illness INITIAL COMMENTS - FREE TEXT/NARRATIVE: 69 yo male was pretty severely stressed today when first he got a vehicle stuck , then when he tried to get that out with his Bobcat he got that stuck as well. He got ready to try to blow them out with his snowblower and decided with his to go inside and rest. Once inside he realized he couldn't remember what he was doing. He had no other sx's such as slurring, difficulty with speech or chest pain. Has a hx of CAD, but not stoke or TIA. Sx's lasted about 30 minutes. His said she could tell that when his memory returned he appeared more relaxed. Onset: Today, Sudden Onset Date: 12/13/19 Duration: Minutes: (30), Resolved Prior to Arrival Location: Reports: Head (amnesia) Quality: Reports: Other (no pain) Severity: Moderate Improves with: Reports: Other (time/relaxing) Worsens with: Reports: Other (? stress) Context: Reports: Other (see HPI) Associated Symptoms: Reports: No Other Symptoms Treatments SHIPYARD HELPER: Reports: Aspirin - Related Data Allergies Allergy/AdvReac Type Severity Reaction Status Date / Time No Known Allergies Allergy Verified 12/13/19 15:29 Home Meds: Home Meds Aspirin [Ecotrin EC] 325 mg PO DAILY 06/19/17 [History] HCTZ/Triamterene [Dyazide 25-37.5 MG] 25 - 37.5 mg PO DAILY 06/19/17 [History] Levothyroxine 175 mcg PO DAILY 06/19/17 [History] Metoprolol Succinate 25 mg PO BEDTIME 06/19/17 [History] atorvaSTATin [Lipitor] 10 mg PO BEDTIME 06/19/17 [History] Past Medical History HEENT History: Reports: Impaired Vision Cardiovascular History: Reports: Bypass, High Cholesterol, Hypertension, [place], Stents Endocrine/Metabolic History: Reports: Hypothyroidism - Infectious Disease History Infectious Disease History: Reports: Chicken Pox, Measles - Past Surgical History GI Surgical History: Reports: Colonoscopy Social & Family History - Tobacco Use Smoking Status *Q: Never Smoker - Caffeine Use Caffeine Use: Reports: Coffee ED ROS GENERAL - Review of Systems Review Of Systems: See Below Constitutional: Reports: No Symptoms HEENT: Reports: No Symptoms Respiratory: Reports: No Symptoms Cardiovascular: Reports: No Symptoms GI/Abdominal: Reports: No Symptoms : Reports: No Symptoms Musculoskeletal: Reports: No Symptoms Skin: Reports: No Symptoms Neurological: Reports: Other (transient amnesia to recent events) Psychiatric: Reports: Anxiety (at the time, not now) ED EXAM, NEURO - Physical Exam Exam: See Below Exam Limited By: No Limitations General Appearance: Alert, WD/WN, No Apparent Distress Eye Exam: Bilateral Eye: EOMI, Normal Inspection, PERRL Ears: Normal External Exam, Normal Canal, Hearing Grossly Normal, Normal TMs Nose: Normal Inspection, No Blood Throat/Mouth: Normal Inspection, Normal Lips, Normal Oropharynx, Normal Voice, No Airway Compromise Head Exam: Atraumatic, Normocephalic Neck: Normal Inspection Respiratory/Chest: No Respiratory Distress, Lungs Clear, Normal Breath Sounds, No Accessory Muscle Use Cardiovascular: Regular Rate, Rhythm, No Edema GI/Abdominal: Normal Bowel Sounds, Soft, Non-Tender Neurological: Alert, Normal Mood/Affect, Normal Dorsiflexion, CN II-XII Intact, Normal Plantar Flexion, Normal Reflexes, No Motor/Sensory Deficits, Oriented x 3. No: Ataxia, Tremor, Difficulty Walking Back Exam: Normal Inspection. No: CVA Tenderness (R), CVA Tenderness (L) Extremities: Normal Inspection, Normal Range of Motion, Non-Tender, No Pedal Edema Psychiatric: Normal Affect, Normal Mood Skin Exam: Warm, Dry, Intact, Normal Color, No Rash Course - Vital Signs Last Recorded V/S: Last Vital Signs Temp 36.3 C 12/13/19 15:37 Pulse 63 12/13/19 16:19 Resp 16 12/13/19 15:37 BP 157/104 H 12/13/19 16:19 Pulse Ox 95 12/13/19 16:19 - Orders/Labs/Meds Labs: Laboratory Tests 12/13/19 12/13/19 Range/Units 16:00 16:00 WBC 8.4 (4.5-11.0) K/uL RBC 5.52 (4.30-5.90) M/uL Hgb 15.9 H (12.0-15.0) g/dL Hct 46.9 (40.0-54.0) % MCV 85 (80-98) fL MCH 29 (27-31) pg MCHC 34 (32-36) % Plt Count 268 (150-400) K/uL Sodium 141 (140-148) mmol/L Potassium 3.6 (3.6-5.2) mmol/L Chloride 104 (100-108) mmol/L Carbon Dioxide 24 (21-32) mmol/L Anion Gap 13.3 (5.0-14.0) mmol/L BUN 15 D (7-18) mg/dL Creatinine 1.0 (0.8-1.3) mg/dL Est Cr Clr Drug Dosing 73.21 mL/min Estimated GFR (MDRD) > 60 (>60) Glucose 88 (74-106) mg/dL Calcium 9.4 (8.5-10.1) mg/dL Troponin I < 0.017 (0.000-0.056) ng/mL Departure - Departure Time of Disposition: 16:31 Disposition: Home, Self-Care 01 Condition: Good Clinical Impression: Transient amnesia - Discharge Information *PRESCRIPTION DRUG MONITORING PROGRAM REVIEWED*: No *COPY OF PRESCRIPTION DRUG MONITORING REPORT IN PATIENT PITA: No Referrals: Grecia Washington MD [Primary Care Provider] - Forms: ED Department Discharge Additional Instructions: Continue your usual medications. If your BP does not come down you should see your doctor for a medication adjustment. Return as needed. Sepsis Event Note - Evaluation Sepsis Screening Result: No Definite Risk - Focused Exam Vital Signs: Vital Signs Temp Pulse Resp BP Pulse Ox 12/13/19 16:19 63 157/104 H 95 12/13/19 15:37 36.3 C 59 L 16 156/90 H 94 L 12/13/19 15:15 36.3 C 66 16 164/102 H 93 L Date Exam was Performed: 12/13/19 Time Exam was Performed: 16:31
[2019-12-13 16:39] VITALS: BP 152/87; PULSE 61
== END 2019-12-13 16:42 | disposition home or self-care (01) ==
LOC: JP.ED 14:52
DX: G45.4 Transient global amnesia (principal); I25.10 Atherosclerotic heart disease of native coronary artery without angina pectoris; E78.00 Pure hypercholesterolemia, unspecified; I10 Essential (primary) hypertension; I25.2 Old myocardial infarction; E03.9 Hypothyroidism, unspecified; Z79.82 Long term (current) use of aspirin; Z79.899 Other long term (current) drug therapy; Z79.890 Hormone replacement therapy; Z95.1 Presence of aortocoronary bypass graft; Z95.5 Presence of coronary angioplasty implant and graft
CPT/HCPCS: 36415; 80048; 84484; 85027; 99282; 99284

== ENCOUNTER 2020-02-28 10:43 | Emergency (ER) | payer MEDICARE, OTHER ==
[2020-02-28 11:17] VITALS: BP 170/99; PULSE 65
[2020-02-28] MEDS ORDERED: Lidocaine 1% with EPINEPHrine 1:100,000 50 ML MDV INFILT STA (11:17)
[2020-02-28] MEDS ORDERED: Diphtheria,Pertussis(Acell),Tetanus Vaccine 0.5 ML SDV IM ONE (11:17)
--- NOTE | 2020-02-28 12:22 | EDM.PDOC ---
ED HPI GENERAL MEDICAL PROBLEM - General Chief Complaint: Laceration Stated Complaint: FOREHEAD AND HAND INJURY Time Seen by Provider: 02/28/20 11:15 Source of Information: Reports: Patient History Limitations: Reports: No Limitations - History of Present Illness INITIAL COMMENTS - FREE TEXT/NARRATIVE: This is a 69-year-old male who presents with multiple lacerations. He was working on a bathroom remodel when floor joist broke, he cut his right hand as well as his forehead. He suspects he cut the forehead on some metal strapping around the duct. He had no LOC. He is not on any anticoagulation. He is not sure of his last tetanus, sometime around 2002. He is not on any anticoagulation. - Related Data Allergies Allergy/AdvReac Type Severity Reaction Status Date / Time No Known Allergies Allergy Verified 02/28/20 10:56 Home Meds: Home Meds Aspirin [Ecotrin EC] 325 mg PO DAILY 06/19/17 [History] HCTZ/Triamterene [Dyazide 25-37.5 MG] 25 - 37.5 mg PO DAILY 06/19/17 [History] Levothyroxine 175 mcg PO DAILY 06/19/17 [History] Metoprolol Succinate 25 mg PO BEDTIME 06/19/17 [History] Past Medical History HEENT History: Reports: Impaired Vision Cardiovascular History: Reports: Bypass, High Cholesterol, Hypertension, [place], Stents Endocrine/Metabolic History: Reports: Hypothyroidism - Infectious Disease History Infectious Disease History: Reports: Chicken Pox, Measles - Past Surgical History GI Surgical History: Reports: Colonoscopy Social & Family History - Tobacco Use Smoking Status *Q: Never Smoker - Caffeine Use Caffeine Use: Reports: Coffee ED ROS GENERAL - Review of Systems Review Of Systems: See Below Constitutional: Reports: No Symptoms HEENT: Reports: No Symptoms Respiratory: Reports: No Symptoms Cardiovascular: Reports: No Symptoms Endocrine: Reports: No Symptoms GI/Abdominal: Reports: No Symptoms : Reports: No Symptoms Musculoskeletal: Reports: No Symptoms Skin: Reports: Wound Neurological: Reports: No Symptoms Psychiatric: Reports: No Symptoms Hematologic/Lymphatic: Reports: No Symptoms Immunologic: Reports: No Symptoms ED EXAM, SKIN/RASH Exam: See Below Exam Limited By: No Limitations General Appearance: Alert, No Apparent Distress Ears: Normal External Exam Nose: Normal Inspection Throat/Mouth: Normal Inspection Head: Other (Approx 3.5 cm laceration lateral and above the right eyebrow. Small (< 1 cm) laceration medial to the right eyebrown. Approx 3 cm laceration medial side of right hand) ED SKIN PROCEDURES - Laceration/Wound Repair Right Lateral Forehead Appearance: Superficial Distal NVT: No Tendon Injury Anesthetic Type: Local Local Anesthesia - Lidocaine (Xylocaine): 1% with EPI Local Anesthetic Volume: 2cc Skin Prep: Chlorhexidine (Hibiciens) Saline Irrigation (cc's): 150 Exploration/Debridement/Repair: Wound Explored Closed with: Sutures Lac/Wound length In cm: 3.5 Suture Size: 5-0 Suture Type: Nylon Sterile Dressing Applied: Nurse Tetanus Status Addressed: Yes Complications: No Right Medial Forehead Appearance: Superficial Distal NVT: Neuro & Vascular Intact Anesthetic Type: Local Local Anesthesia - Lidocaine (Xylocaine): 1% with EPI Local Anesthetic Volume: 1cc Skin Prep: Chlorhexidine (Hibiciens) Exploration/Debridement/Repair: Wound Explored Closed with: Sutures Lac/Wound length In cm: 1 Suture Size: 5-0 # of Sutures: 1 Suture Type: Nylon Right Medial Hand Appearance: Superficial Distal NVT: Neuro & Vascular Intact, No Tendon Injury Anesthetic Type: Local Local Anesthesia - Lidocaine (Xylocaine): 1% with EPI Local Anesthetic Volume: 2cc Exploration/Debridement/Repair: Wound Explored, Explored to Base, No Foreign Material Found Closed with: Sutures Lac/Wound length In cm: 3.5 Suture Size: 5-0 Suture Type: Nylon Sterile Dressing Applied: Nurse Tetanus Status Addressed: Yes Complications: No Course - Vital Signs Last Recorded V/S: Last Vital Signs Temp 36.2 C 02/28/20 11:06 Pulse 65 02/28/20 11:06 Resp 14 02/28/20 11:06 BP 170/99 H 02/28/20 11:06 Pulse Ox 98 02/28/20 11:06 - Orders/Labs/Meds Orders: Active Orders 24 hr Category Date Time Status Vaccines to be Administered [RC] PER UNIT ROUTINE Care 02/28/20 11:17 Active Meds: Medications Discontinued Medications Generic Name Dose Route Start Last Admin Trade Name Freq PRN Reason Stop Dose Admin Diphtheria/Tetanus/Acell Pertussis 0.5 ml 02/28/20 11:17 02/28/20 11:27 Adacel IM 02/28/20 11:18 0.5 ml .ONCE ONE Administration Lidocaine/Epinephrine 10 ml 02/28/20 11:17 02/28/20 11:26 Xylocaine 1% With Epinephrine 1:100,000 INFILT 02/28/20 11:18 10 ml NOW STA Administration - Re-Assessments/Exams Free Text/Narrative Re-Assessment/Exam: This is a 69 yo male who presents with multiple lacerations as outlined. Repaired as above. CSM intact in the hand. Tdap addressed Discharge with plan for follow up in 4-5 days for suture removal 02/28/20 12:27 Departure - Departure Time of Disposition: 12:20 Disposition: Home, Self-Care 01 Clinical Impression: Facial laceration Qualifiers: Encounter type: initial encounter Qualified Code(s): S01.81XA - Laceration without foreign body of other part of head, initial encounter Hand laceration Qualifiers: Encounter type: initial encounter Foreign body presence: without foreign body Laterality: right Qualified Code(s): S61.411A - Laceration without foreign body of right hand, initial encounter - Discharge Information Instructions: Wound Infection, Laceration Care, Adult Referrals: PCP,None [Primary Care Provider] - Forms: ED Department Discharge Additional Instructions: As discussed, please keep the wound moist with antibacterial ointment for the first 48 hrs. Avoid getting the wound wet during this time. Make a follow up appointment with your primary doctor around Sun or Thurs for suture removal See a doctor for signs of infection such as redness, drainage, or increasing pain. Sepsis Event Note - Evaluation Sepsis Screening Result: No Definite Risk - Focused Exam Vital Signs: Vital Signs Temp Pulse Resp BP Pulse Ox 02/28/20 11:06 36.2 C 65 14 170/99 H 98 Date Exam was Performed: 02/28/20 Time Exam was Performed: 12:22 - My Orders Last 24 Hours: My Active Orders 02/28/20 11:17 Vaccines to be Administered [RC] PER UNIT ROUTINE - Assessment/Plan Last 24 Hours: My Active Orders 02/28/20 11:17 Vaccines to be Administered [RC] PER UNIT ROUTINE
== END 2020-02-28 12:39 | disposition home or self-care (01) ==
LOC: JP.ED 10:43
DX: S61.411A Laceration without foreign body of right hand, initial encounter (principal); S01.81XA Laceration without foreign body of other part of head, initial encounter; I10 Essential (primary) hypertension; E03.9 Hypothyroidism, unspecified; Z79.82 Long term (current) use of aspirin; Z79.899 Other long term (current) drug therapy; Z23 Encounter for immunization; W26.8XXA Contact with other sharp object(s), not elsewhere classified, initial encounter
CPT/HCPCS: 12001; 12002; 12013; 90471; 90715; 99282; 99283

== ENCOUNTER 2024-05-09 10:14 | Emergency (ER) | payer MEDICARE, OTHER ==
[2024-05-09] MEDS: Tamsulosin 0.4 MG Cap.ER PO ONE (11:04)
[2024-05-09 11:19] VITALS: BP 135/78; PULSE 62
== END 2024-05-09 11:18 | disposition home or self-care (01) ==
LOC: JP.ED 10:14
DX: N20.0 Calculus of kidney (principal); I10 Essential (primary) hypertension; E78.00 Pure hypercholesterolemia, unspecified; I25.2 Old myocardial infarction; E03.9 Hypothyroidism, unspecified; Z79.82 Long term (current) use of aspirin; Z79.890 Hormone replacement therapy; Z79.899 Other long term (current) drug therapy; Z95.5 Presence of coronary angioplasty implant and graft; Z95.1 Presence of aortocoronary bypass graft
CPT/HCPCS: 99283; A9270